=== PATIENT | male | born 2005 | race Caucasian/White ===

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

== ENCOUNTER 2024-12-22 15:08 | Emergency (ER) | payer MEDICAID, SELFPAY ==
--- NOTE | 2024-12-22 15:15 | ED.SKABFB ---
HPI - Skin/Abscess/Foreign Bdy General Chief complaint: Skin/Abscess/Foreign Body Stated complaint: Lower Back Cyst- Pain Related Data Previous Rx's ?Medication ?Instructions ?Recorded doxycycline monohydrate 100 mg 100 mg PO BID #20 caps 04/22/22 capsule Allergies Allergy/AdvReac Type Severity Reaction Status Date / Time ibuprofen [IBUPROFEN] Allergy Unknown facial Verified 12/22/24 15:18 swelling PMFSH Social History Social History Advance Directives: No Advance Directives Information Provided: No Physical Exam Vital Signs: Vital Signs: Last Vital Signs Temp 97.1 F 12/22/24 15:17 Pulse 77 12/22/24 15:17 Resp 16 12/22/24 15:17 BP 99/51 L 12/22/24 15:17 Pulse Ox 97 12/22/24 15:17 O2 Del Method Room Air 12/22/24 15:17 BMI result Body Mass Index 21.2 Course Course Course Narrative: This is a Rapid Medical Exam performed in triage by Mishel Ford PA-C. Full HPI, ROS and PE to be performed by primary ED provider. 19 yo M w/pmhx pilonidal cyst presenting to the ED c/o painful cyst to low back/buttock x1 mos. denies drainage from area. urinating & having BMs normally PE: area not examined in triage Plan: full eval by main ED provider Discharge Plan Discharge Clinical Impression: Pilonidal cyst Patient Disposition: Left W/O Completing Treatment Prescriptions: No Action doxycycline monohydrate 100 mg capsule 100 mg PO BID Qty: 20 0RF Discharge Date/Time: 12/22/24 19:42
[2024-12-22 15:17] VITALS: BP 99/51; PULSE 77; RESP 16; TEMP 36.2; O2SAT 97; BMI 21.2
--- OUTSIDE RECORDS SUMMARY | 2024-12-22 18:48 | XMS_ITS | Encounter Summary ---
Author Organization [employer] Address [address] [facility] [address] [place] [address] Care Team Providers Care Hogshead Head Matcher Name Role Phone Carlton Rondon MD Primary Care Provider [phone] Milagros Villagran Primary Care Provider [phone] Encounter Details Date Type Department Care Team ([facility] st Contact Info) Description 10/24/2022 Orders Only [facility] [address] [place] [id number] Carlton Rondon MD [address] [place] [phone] Seizure disorder (CMS/HCC) (Primary Dx) Social History Tobacco Use Types Packs/Day Years Used Date Smoking Tobacco: Never Assessed Sex and Gender Information Value Date Recorded Sex Assigned at Male 07/01/2022 10:18 AM EDT Legal Sex Male 10:18 AM EDT Gender Identity Male 07/01/2022 10:18 AM EDT Sexual Orientation Straight 07/01/2022 10 :18 AM EDT documented as of this encounter Plan of Treatment Not on file documented as of this encounter Visit Diagnoses Diagnosis Seizure disorder (CMS/HCC)- Primary Unspecified epilepsy without mention of intractable epilepsy documented in this encounter Care Teams Hogshead Head Matcher Relationship Specialty Start Date End Date Carlton Rondon MD [address] [place] [address] [phone] PCP - General Pediatrics 02/06/22 05/11/23 Milagros Villagran ANP [address] [place] [phone] PCP - General Family Medicine 05/12/23 documented as of this encounter
--- OUTSIDE RECORDS SUMMARY | 2024-12-22 18:48 | XMS_ITS | Clinical Summary ---
Author Organization [email or web address] Address [address] [facility] 7[address] [place] [address] Care Team Providers Care Communications Officer Name Role Phone Milagros Villagran MILTON Primary Care Provider [phone] Allergies Active Allergy Reactions Criticality Noted Date Comments Ibuprofen 10/24/2022 Medications * This document contains information received from the source organization and may not represent a complete record from that organization. Retin-A 0.05 % cream APPLY TO THE AFFECTED AREA(S) ON FACE AT BEDTIME 10/11/2022 Active OXcarbazepine (Trileptal) 300 MG tabletIndicatio ns:Seizure disorder (CMS/HCC) TAKE 2 TABLETS BY MOUTH EVERY TWELVE HOURS 120 tablet 1 05/07/2024 Active Active Problems Problem Noted Date Diagnosed Date Anxiety 06/15/2024 Assessment & Plan (06/16/2024 10:22 AM EDT): During [facility] Consult Dedrick presenting with excessive worry/anxiety, difficulty controlling worry, anxiety/worry associated to restlessness and/or feeling keyed-up/On edge , easily fatigued , difficulty concentrating and/or mind going blank , irritability, and sleep disturbance difficulty falling asleep, and sense of dread ; for a period of 18+ mo, for some symptoms in the context of family issues, financial concern, and illness or family illness. Dedrick carries a PTSD diagnosis per his medical chart. Pt reports having difficulties within the family dynamics. He gets triggered by external stimulus causing severe anger and irritability leading to a sense of isolation from others to avoid conflicts. His medical condition has also being identified as current stressor for sxs due to presentation of seizures. clinician engaged patient with active/reflective listening and provided an emphatic approach. Pt prefers to utilize [facility] programs and request same-day appointment in [place] due to lack of transportation. Reviewed and assessed for risk, current stressors and protective factors. clinician will provide additional support during next medical appointment. 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 Overview (10/02/2023): Oxcarmazepine 600mg BID (from PCP), [place] Diazepam 15mg PRN seizures >5min (from neuro), had been w/ [facility] pedi neuro & to f/u w/ adult neuro now Post-traumatic stress disorder, unspecified 09/2023 Assessment & Plan (05/13/2024 10:28 AM EDT): During [facility] Consult Dedrick presenting with Intrusive trauma memories and thoughts, Hypervigilance, Avoidance of trauma reminders/triggers, Increased startle response, Fear and distrust in relationships, Isolation from normal social supports, and Feelings of impending doom; for a period of 18+ mo, for most or all symptoms in the context of family issues, financial concern, illness or family illness, and housing. Dedrick report having difficulties with his family dynamics. He gets triggered by external stimulus causing severe anger and irritability. He prefers to isolate from others in order to avoid conflicts at home. Medical condition has also being identified as current stressor for sxs. clinician engaged patient with active/reflective listening and provided an emphatic approach. Pt prefers to utilize [facility] programs and request same-day appointment with [facility] in [place]. Pt would like to start medication to help him sleep better. Provided feedback to PCP who will look into it. Reviewed and assessed for risk, current stressors and protective factors. Information for [facility] provided. Assessment & Plan (10/02/2023 4:21 PM EST): PROGRESS NOTE: ID: Dedrick is a 18 y.o. Decline to answer straight-identified cis-male (pronouns ) with No previous hx of MH dx or sx No previous hx of MH services who presents for Anger. Pt has Hx of trauma in both childhood and adulthood, patient has comorbid illness that prevent him to find a job. During [facility] Consult Dedrick presenting with Intrusive trauma memories and thoughts, Hypervigilance, Avoidance of trauma reminders/triggers, Increased startle response, Fear and distrust in relationships, Isolation from normal social supports, and Feelings of impending doom; for a period of 18+ mo, for all symptoms in the context of stressed relationship with grandmother and biological father, lack of income, possibility of become homeless. PLAN: New/Additional Services needed Off-site services for Behavioral Health Integration Plan External OP therapy referral and OP psychiatry Referral Patient Self Plan Patient to [facility] as [facility], Patient to engage in OP therapy , and Patient to reach out to [facility] as needed Acne vulgaris 10/24/2022 Overweight 10/24/2022 Seizure disorder 10/24/2022 Seasonal allergies 12/16/2018 Encounters Date Type Department Care Team Description 11/12/2024 Population Health Risk Score [facility] () Department [address] [place] [address] [phone] Provider, Population Health Generic from Last 3 Months Immunizations Name Administration Dates Next Due DTaP 10/08/2007, 6,03/22/2004,01/26,2003 HPV 9-Valent 05/21/2016,11/02/2015,02/14/2015 Hep A, ped/adol, 2 dose 05/21/2016,11/02/2015 Hep B, Adolescent or Pediatric 03/22/2004,2003,2003 Hib (HbOC) 09/27/2005, 4,01/27/2004,11/20 IPV 10/08/2007, 5,01/27/2004,11/20 Influenza injectable quadriv alent IIV4 with preservative 11/02/2015 Influenza injectable quadriv alent preservative free 10/17/2020,08/20/2018,06/03/2014 Influenza, IIV3, injectable 07/22/2006, 6 MMR 03/01/2009,10/08/2007,09/07/2004 Meningococcal MCV4P [id number]-135 10/17/2020,02/15/20 15 Pfizer Covid-19 Vaccine 12+ Bivalent 08/21/2022 Pneumococcal Conjugate PCV 7 09/27/2005, 03/22/2004,01/27/2004,11/20 Tdap 02/14/2015 Varicella 03/01/2009,10/08/2007,09/07/2004 Social History Tobacco Use Types Packs/Day Years Used Date Smoking Tobacco: Never Smokeless Tobacco: Never Tobacco Cessation:Counseling Given: Not Answered Alcohol Use Standard Drinks/Week Comments Never 0 (1 standard drink = 0.6 oz pur e alcohol) Depression Answer Date Recorded Patient Health Questionnaire-9 Score 9 06/15/2024 Patient Health Questionnaire-9 Score 9 06/15/2024 Last PHQ-9: Questionnaire Data Not on file 1 Housing Stability Answer Date Recorded What is your housing situation today? I have rolanda huerta 05/07/[address] you li ve. Do you have problems with any of the following? None of the above 05/07/2024 Food Insecurity Answer Date Recorded Within the past 12 months, y ou worried that your food would run out before you got money to buy more: Never True 05/07/2024 Within the past 12 months,th e food you bought just didn't last and you didn't have enough money to get more: Never True 01/2024 Transportation Answer Date Recorded In the past 12 months, has l ack of transportation kept you from medical appts, meetings, work or from getting things needed for daily living? No 05/07/2024 Utilities Answer Date Recorded In the past 12 months, has t he electric, gas, oil or water company threatened to shut off services in your home? Already shut Off 05/07/2024 Depression Answer Date Recorded Patient Health Questionnaire-2 Score 2 06/15/2024 Internet Access Answer Date Recorded Internet Access Q1 Yes 05/07/2024 Internet Access Q2 Not on file 05/07/2024 Sex and Gender Information Value Date Recorded Sex Assigned at Male 07/01/2022 10:18 AM EDT Legal Sex Male 10:18 AM EDT Gender Identity Male 07/01/2022 10:18 AM EDT Sexual Orientation Straight 07/01/2022 10 :18 AM EDT Last Filed Vital Signs Vital Sign Reading Time Taken Comments Blood Pressure 114/60 05/07/2024 2:21 PM EDT Pulse 91 05/07/2024 2:21 PM EDT Temperature 36.6 ??C (97.8 ??F) 05/07/2024 2:21 PM ED T Respiratory Rate 20 05/07/2024 2:21 PM EDT Oxygen Saturation 97% 05/07/2024 2:21 PM EDT Inhaled Oxygen Concentration - - Weight 61 kg (134 lb 6.4 oz) 05/07/2024 2:21 PM EDT Height 168 cm (5' 6.14 ) 05/07/2024 2:21 PM EDT Body Mass Index 21.6 05/07/2024 2:21 PM EDT Plan of Treatment Health Maintenance Due Date Last Done Comments Chlamydia and Gonorrhea Screening 2003 HIV Screening 2003 Alcohol/Substance Use Screening 2015 Family Planning (PISQ) 2018 Hepatitis C Screening 2021 COVID-19 Vaccine ( season) 2024 08/21/2022, 05/30/2021, 04/25/2021 Influenza Vaccine (#1) 2024 , 08/20/2018, 11/02/2015, Additional history exists Depression Monitoring 12/14/2024 06/15/2024, 024 DTaP/Tdap/Td Vaccines (7 - Td or Tdap) 02/14/2025 02/14/2015, 10/08/2007, 09/27/2005, Additional history exists SDOH Screening 05/07/2025 05/07/2024 Tobacco Screening 05/07/2025 05/07/2024 Depression Screening 06/15/2025 06/15/2024, 06/15/20 24 Zoster Vaccines (1 of 2) 2053 RSV Patients and Patients Aged 60 years or older (1 - 1-dose 75+ series) 2078 Hepatitis B Vaccines Completed 03/22/2004, 2003, 2003 HIB Vaccines Completed 09/27/2005, 03/02, 01/27/2004, Additional history exists Pneumococcal Vaccine: Pediatrics (0 to 5 Years) and At-Risk Patients (6 to 49) Years) Aged Out 09/27/2005, 03/22/2004, 01/27/2004, Additional history exists No longer eligible based on patient's age to complete this topic IPV Vaccines Completed 10/08/2007, 03/2005, 01/27/2004, Additional history exists HPV Vaccines Completed 05/21/2016, 10/2015, 02/14/2015 Hepatitis A Vaccines Completed 05/21/2016, 11/02/19 16 Meningococcal Vaccine Completed 10/17/2020, 015 RSV under 20 months Aged Out No longe r eligible based on patient's age to complete this topic Rotavirus Vaccines Aged Out No longer eligible based on patient's age to complete this topic Insurance [employer] C3 Care Teams Communications Officer Relationship Specialty Start Date End Date Milagros Villagran ANP [address] [place] [phone] PCP - General Family Medicine 05/12/23
== END 2024-12-22 19:42 | disposition left against medical advice (07) ==
PROVIDERS: Emergency Provider Emergency Medicine
DX: L05.91 Pilonidal cyst without abscess (principal); Z53.21 Procedure and treatment not carried out due to patient leaving prior to being seen by health care provider
CPT/HCPCS: 99281

== ENCOUNTER 2025-01-14 17:30 | Emergency (ER) | payer MEDICAID, SELFPAY ==
[2025-01-14 18:11] VITALS: BP 92/43; PULSE 81; RESP 16; TEMP 37.1; O2SAT 98; BMI 19.6
[2025-01-14 22:00] VITALS: BP 100/56; PULSE 71; RESP 16; TEMP 36.7; O2SAT 98
--- NOTE | 2025-01-14 23:14 | ED.GENADULT ---
HPI - General Adult General Chief complaint: Skin/Abscess/Foreign Body Stated complaint: cyst removal Time Seen by Provider: 01/14/25 22:55 Source: patient, RN notes reviewed and old records reviewed Mode of arrival: ambulatory Limitations: no limitations History of Present Illness ED Provider: Jareth HPI narrative: 19-year-old male presents for evaluation of ?pilonidal abscess. 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 He is due to have surgery if the end of next month for definitive treatment. However over last 2 days he has had worsening pain, swelling and subjective fevers. He was here last month and had an incision and drainage He was not placed on antibiotics and reports his symptoms did improve but did not completely resolve before returning 2 days ago While in the ER, prior to my evaluation he reports that the area opened up and has been draining profusely. He reports it is primarily yellow green drainage but then became bloody Related Data Previous Rx's ?Medication ?Instructions ?Recorded doxycycline monohydrate 100 mg 100 mg PO BID #20 caps 04/22/22 capsule cephalexin 500 mg capsule 500 mg PO QID #40 caps 01/14/25 Allergies Allergy/AdvReac Type Severity Reaction Status Date / Time ibuprofen [IBUPROFEN] Allergy Unknown facial Verified 01/14/25 18:12 swelling Review of Systems Constitutional: Constitutional: Denies body ache(s), Denies chills, Reports fever(s) and Denies headache(s) ENT: Denies headache(s) Integumentary/Breasts: Skin/Breast: Reports erythema, Reports skin pain, Reports skin swelling and Reports sores Neurologic: Denies headache(s) PMF Social History Social History Advance Directives: No Advance Directives Information Provided: No Physical Exam ED Vital Signs: Vital Signs - 24 hr 01/14/25 18:11 01/14/25 22:00 01/14/25 23:26 Temperature 98.7 F 98.1 F 98.8 F Pulse Rate 81 71 94 Respiratory Rate 16 16 16 Blood Pressure 92/43 L 100/56 L 92/52 L Pulse Oximetry 98 98 96 Oxygen Delivery Method Room Air Room Air Room Air 01/14/25 23:36 Temperature 98.8 F Pulse Rate 94 Respiratory Rate 16 Blood Pressure 92/52 L Pulse Oximetry 96 Oxygen Delivery Method Room Air BMI result Body Mass Index 19.6 Const General: healthy appearing, comfortable, no acute distress, alert and awake Nutritional Appearance: well nourished Orientation/consciousness: patient oriented x3 HENMT Head: Yes normocephalic and Yes atraumatic Throat: Yes posterior oropharynx normal Eyes Eyelids: Yes eyelids normal Conjunctivae: conjunctivae normal Sclerae: sclerae normal Corneas: corneas normal Pupils: Equal, round and reactive pupils present EOM: EOMs intact bilaterally Neck Neck: Yes full ROM Skin Other: Patient has chronic skin changes with discoloration and induration in the gluteal cleft in superior to the gluteal cleft. There is some erythema. There was a central opening, about half a cm above the gluteal cleft draining mostly bloody material. No foul-smelling drainage. There was no induration, erythema extending down towards the rectum. Overall, the area of induration is about 6 cm in diameter General skin exam: elasticity normal Neuro General: patient oriented x3 Cranial nerves: Yes Equal, round and reactive pupils present and Yes Bilaterally intact EOM present Cognition (Neuro): normal cognition Extrem Other: Moving all extremities well without any obvious deformities Medications Administered Discontinued Medications Generic Name Dose Route Start Last Admin Trade Name Freq PRN Reason Stop Dose Admin Cephalexin HCl 500 mg 01/14/25 23:14 01/14/25 23:31 Cephalexin 500 Mg Capsule PO 01/14/25 23:15 500 mg ONCE ONE Administration Medical Decision Making Medical Decision Making [facility] Narrative: 19-year-old male presents for evaluation of a pilonidal abscess. He does appear to have an acute infection. The he is afebrile. The area open than an is draining on its own. He is not a diabetic. I recommended attempting incision and drainage to further open the area and remove any possible loculations. The patient apparently had a bad experience to the last time he required an an incision and drainage as he had did not feel he was properly anesthetized and declines incision and drainage as the area is currently draining. We will discharge the patient with cephalexin, warm compresses and he will be given return precautions Differential Diagnosis Differential Diagnoses: The differential diagnosis associated with the presentation includes Cellulitis Pilonidal abscess Sebaceous cyst Hidradenitis Discharge Plan Discharge Clinical Impression: Pilonidal abscess Patient Disposition: Home, Self-Care Instructions: Abscess (ED) Additional Instructions: Take the cephalexin every 6 hours for 10 days. Apply warm compresses every 4 hours for 10-15 minutes. Follow-up with your general surgeon as planned. Return for new or worsening symptoms, especially worsening pain or swelling, fevers Prescriptions: New cephalexin 500 mg capsule 500 mg PO QID Qty: 40 0RF No Action doxycycline monohydrate 100 mg capsule 100 mg PO BID Qty: 20 0RF Interventions: ED Discharge Assessment Last Done: 01/14/25 23:36 Discharge Date/Time: 01/14/25 23:37 Print Language: Uzbek
[2025-01-14 23:26] VITALS: BP 92/52; PULSE 94; RESP 16; TEMP 37.1; O2SAT 96
[2025-01-14] MEDS: cephALEXin 500 MG CAPSULE PO (23:31)
[2025-01-14 23:36] VITALS: BP 92/52; PULSE 94; RESP 16; TEMP 37.1; O2SAT 96
== END 2025-01-14 23:37 | disposition home or self-care (01) ==
PROVIDERS: Emergency Provider Internal Medicine
DX: L05.91 Pilonidal cyst without abscess (principal)
CPT/HCPCS: 99283

== ENCOUNTER 2025-02-01 09:54 | Outpatient (AMB) | payer MEDICAID, SELFPAY ==
--- NOTE | 2025-02-01 09:55 | A.OFFVIS_ITS ---
Vital Signs 3 02/01/25 10:02 Height 5 ft 8 in Weight 129 lb 10.109 oz BMI 19.7 Respiration 16 Intake Visit Reasons: pilonidal cyst Intake Note: Patient is seen in office for evaluation of a pilonidal cyst. Pt c/o: onset 2 months, went to ED due to open and draining, currently is close up sometimes it fills up, worse with sitting, denies redness, warm to touch, no pain, on antibiotics ED:01/14/25 Studio Assistant Required: No Accompanied by: Self / Same As Patient Allergies Seasonal Allergies Allergy (Mild, Verified 02/01/25 10:00) Unknown ibuprofen [IBUPROFEN] Allergy (Unknown, Verified 02/01/25 10:00) facial swelling Medication List - Last Reconciled 02/01/25 by Adam Gan MD cephalexin 500 mg PO QID oxcarbazepine 150 mg PO BID tretinoin 0.05% 1 appl topical BEDTIME HPI Comments Details: 19-year-old male patient presenting with a several year history of pilonidal cyst infections requiring least 3 incision and drainage procedures performed in the emergency department. His most recent episode occurred approximately 1 month ago and was his most severe episode. While waiting in the emergency department the cyst broke open spontaneously. He reports a large amount of discharge from the pilonidal cyst. He was subsequently placed on antibiotics and subsequently had improvement in his symptoms. He continues to feel some swelling in the intergluteal cleft and has a history of fever and chills during the most recent infection. He denies any current discharge. He is currently on cephalexin 500 mg p.o. q.i.d.. [facility] Medical History (Updated 02/01/25 @ 10:13 by Adam Gan MD) Pilonidal cyst Surgical History (Updated 02/01/25 @ 10:02 by FILIBERTO Azul) History of incision and drainage Review of Systems Const All systems reviewed & are unremarkable except as noted in HPI and below Physical Exam Const General: cooperative and no acute distress Nutritional Appearance: well nourished Orientation/consciousness: patient oriented x3 Limitations: no limitations HEENT Head: Yes normocephalic and Yes atraumatic Ears: hearing grossly normal bilaterally Resp Effort & Inspection: normal respiratory effort, no audible wheezes, no cough and no respiratory distress Cardio Jugular venous distension: no JVD GI Inspection: Yes normal to inspection Back/Spine/Pelvis Back/spine/pelvis image: 2 1. Large residual area of inflammation involving the left intergluteal cleft wall measuring approximately 3 cm in diameter, most consistent with a pilonidal cyst. There is no tenderness to palpation. Small amount of fluid is palpable below the skin. Skin Other: Warm, dry, no rash Neuro General: patient oriented x3 Extrem General: Yes no clubbing, cyanosis or edema Assessment & Plan Assessment & Plan (1) Pilonidal cyst: Code(s): L05.91 - Pilonidal cyst without abscess Category: Medical Plan 19-year-old male patient presenting with a recurrent history of pilonidal cyst infections requiring incision and drainage found to have a large area of inflammation most consistent with a pilonidal cyst. Because of the recurrent nature of his disease, I recommended a pilonidal cystectomy. I reviewed the procedure, risks, and alternatives and he consents to the pilonidal cystectomy which will be scheduled as a short-stay surgery at his earliest convenience. Coding Level of Care Code New Pt Level 4 (81565) Diagnoses Pilonidal cyst L05.91
[2025-02-01 10:02] VITALS: RESP 16; BMI 19.7
== END 2025-02-01 10:08 | disposition home or self-care (01) ==
LOC: HO.HGS 09:55
PROVIDERS: PCP Nurse Practitioner Primary Care; Visit Provider Surgery
DX: L05.91 Pilonidal cyst without abscess (principal)
CPT/HCPCS: 99204

== ENCOUNTER → 2025-02-01 09:54 | Outpatient (BNVA) | payer MEDICAID, SELFPAY | PROVIDERS: PCP Nurse Practitioner Primary Care; Visit Provider Surgery | DX: L05.91 Pilonidal cyst without abscess (principal) | CPT/HCPCS: 99202 ==

== ENCOUNTER 2025-05-10 16:33 | Outpatient (REF) | payer MEDICAID, SELFPAY ==
--- OUTSIDE RECORDS SUMMARY | 2025-05-10 13:30 | XMS_ITS | Encounter Summary ---
Author Organization [employer] Address [address] [facility] [address] [place] [address] Care Team Providers Care Engraving Operator Name Role Phone Milagros Villagran Primary Care Provider [phone] Reason for Visit * Reason Comments Annual Exam Encounter Details Date Type Department Care Team ([facility] st Contact Info) Description 05/10/2025 1:30 PM EDT Office Visit [facility] MEDICINE [address] [place], [place] [phone] Milagros Villagran ANP [address] [place], [place] [phone] Difficulty maintaining weight (Primary Dx); Difficulty sleeping; Focal epilepsy (CMS/HCC); Post-traumatic stress disorder, unspecified; Routine screening for STI (sexually transmitted infection); Pilonidal cyst; Healthcare maintenance Social History Tobacco Use Types Packs/Day Years Used Date Smoking Tobacco: Never Smokeless Tobacco: Never Alcohol Use Standard Drinks/Week Comments Never 0 (1 standard drink = 0.6 oz pur e alcohol) Depression Answer Date Recorded Patient Health Questionnaire-9 Score 6 05/10/2025 Patient Health Questionnaire-9 Score 6 05/10/2025 Last PHQ-9: Questionnaire Data Not on file 0 05/10/2025 Housing Stability Answer Date Recorded What is your housing situation today? I have rolanda huerta 05/10/[address] you li ve. Do you have problems with any of the following? None of the above 05/10/2025 Food Insecurity Answer Date Recorded Within the past 12 months, y ou worried that your food would run out before you got money to buy more: Never True 05/10/2025 Within the past 12 months,th e food you bought just didn't last and you didn't have enough money to get more: Never True 05/2025 Transportation Answer Date Recorded In the past 12 months, has l ack of transportation kept you from medical appts, meetings, work or from getting things needed for daily living? Yes, it has kept me from medical appointments or getting medications. 05/10/2025 Utilities Answer Date Recorded In the past 12 months, has t he electric, gas, oil or water company threatened to shut off services in your home? No 05/10/2025 Depression Answer Date Recorded Patient Health Questionnaire-2 Score 1 05/10/2025 Internet Access Answer Date Recorded Internet Access Q1 Yes 05/10/2025 Internet Access Q2 Not on file 05/10/2025 Sex and Gender Information Value Date Recorded Sex Assigned at Male 07/01/2022 10:18 AM EDT Legal Sex Male 10:18 AM EDT Gender Identity Male 07/01/2022 10:18 AM EDT Sexual Orientation Straight 07/01/2022 10 :18 AM EDT documented as of this encounter Last Filed Vital Signs Vital Sign Reading Time Taken Comments Blood Pressure 88/64 05/10/2025 1:45 PM EDT Pulse 102 05/10/2025 1:45 PM EDT Temperature 36.2 C (97.2 F) 05/10/2025 1:45 PM EDT Respiratory Rate 20 05/10/2025 1:45 PM EDT Oxygen Saturation 98% 05/10/2025 1:45 PM EDT Inhaled Oxygen Concentration - - Weight 59.9 kg (132 lb) 05/10/2025 1:45 PM EDT Height 167.6 cm (5' 6 ) 05/10/2025 1:45 PM EDT Body Mass Index 21.31 05/10/2025 1:45 PM EDT documented in this encounter Functional Status * Over the past 2 weeks, how often have you been bothered by any of the following problems? Question Answer Date of Assessment Author Patient Health Questionnaire -2 Score 1 05/10/2025 2:44 PM EDT Florinda Su MA * Little interest or pleasure in doing things Answer Date of Assessment Author Several days 05/10/2025 2:44 PM EDT Kaylynn Su MA * Feeling down, depressed, or hopeless Answer Date of Assessment Author Not at all 05/10/2025 2:44 PM EDT Kaylynn Su MA * Trouble falling or staying asleep, or sleeping too much Answer Date of Assessment Author More than half the days 05/10/2025 2:44 PM EDT Florinda Nieto MA * Feeling tired or having little energy Answer Date of Assessment Author Several days 05/10/2025 2:44 PM EDT Kaylynn Su MA * Poor appetite or overeating Answer Date of Assessment Author Several days 05/10/2025 2:44 PM EDT Kaylynn Su MA * Feeling bad about yourself - or that you are a failure or have let yourself or your family down Answer Date of Assessment Author Not at all 05/10/2025 2:44 PM EDT Kaylynn Su MA * Trouble concentrating on things, such as reading the newspaper or watching television Answer Date of Assessment Author Not at all 05/10/2025 2:44 PM EDT Kaylynn Su MA * Moving or speaking so slowly that other people could have noticed? Or the opposite - being so fidgety or restless that you have been moving around a lot more than usual. Answer Date of Assessment Author Several days 05/10/2025 2:44 PM EDT Kaylynn Su MA * Thoughts that you would be better off or hurting yourself in some way Answer Date of Assessment Author Not at all 05/10/2025 2:44 PM EDT Kaylynn Su MA * Patient Health Questionnaire-9 Score Answer Date of Assessment Author 6 05/10/2025 2:44 PM EDT Kaylynn Su MA * Over the last 2 weeks, how often have you been bothered by any of the following problems? Question Answer Date of Assessment Author Feeling nervous, anxious, or on edge 1 05/10/2025 2:45 PM RAYNAT Florinda Su MA Not being able to stop or co ntrol worrying 0 05/10/2025 2:45 PM RAYNAT Florinda Su MA Worrying too much about diff erent things 0 05/10/2025 2:45 PM EDT Florinda Su MA Trouble relaxing 0 05/10/2025 2:45 PM EDT R Florinda fraga MA Being so restless that it is hard to sit still 0 05/10/2025 2:45 PM EDT Florinda Su MA Becoming easily annoyed or irritable 0 05/10/2025 2:45 PM EDT Florinda Su MA Feeling afraid as if somethi ng awful might happen 0 05/10/2025 2:45 PM EDT Florinda Su MA KARLY-7 Total Score 1 05/10/2025 2:45 PM EDT Florinda Su MA documented as of this encounter Patient Instructions * Patient Instructions* MILTON Noguera - 05/10/2025 1:30 PM EDT Please call Dr. Gan's office to schedule removal for your pilonidal cyst: [phone] Please call your [facility] neurology office (Dr. Lang and WARREN Ag): [phone] For sleep: try the medication from your psychiatrist - Trazodone, or melatonin gummies you can purchase. I would also recommend chamomile tea which you can find at [employer] or any grocery store in the tea section. Look into Insight Timer or Calm lalita - both are apps that have sleep meditations available. documented in this encounter Plan of Treatment Scheduled Orders Name Type Priority Associated Diagnoses Orde r Schedule Chlamydia/N. Gonorrhoeae, PCR, Urine Lab Routine Routine screening for STI (sexually transmitted infection) Ordered: 05/10/2025 Hepatitis C Antibody with Reflex to HCV, RNA, Quantitative, Real-Time PCR Lab Routine Routine screening for STI (sexually transmitted infection) Expected: 05/10/2025 (Approximate), Expires: 05/10/2026 HIV-1/2 Antigen and Antibodies, Fourth Generation, with Reflexes Lab Routine Routine screening for STI (sexually transmitted infection) Expected: 05/10/2025 (Approximate), Expires: 05/10/2026 Syphilis Screen Lab Routine Routine screening for STI (sexually transmitted infection) Expected: 05/10/2025 (Approximate), Expires: 05/10/2026 Lipid Panel, Standard Lab Routine Healthcare maintenance Expected: 05/10/2025 (Approximate), Expires: 05/10/2026 TSH W/Reflex to FT4 Lab Routine Difficulty maintaining weight Expected: 05/10/2025 (Approximate), Expires: 05/10/2026 CBC auto differential Lab Routine Difficulty maintaining weight Expected: 05/10/2025 (Approximate), Expires: 05/10/2026 Oxcarbazepine Metabolite Lab Routine Focal epilepsy (CMS/HCC) Expected: 05/10/2025 (Approximate), Expires: 05/10/2026 documented as of this encounter Visit Diagnoses Diagnosis Difficulty maintaining weight- Primary Difficulty sleeping Unspecified sleep disturbance Focal epilepsy (CMS/HCC) Post-traumatic stress disorder, unspecified Routine screening for STI (sexually transmitted infection) Screening examination for venereal disease Pilonidal cyst Healthcare maintenance documented in this encounter Additional Health Concerns Assessment Noted Time PHQ-9 Depression Total Score: 6 05/10/20 25 2:44 PM EDT documented as of this encounter Care Teams Engraving Operator Relationship Specialty Start Date End Date Milagros Villagran ANP [address] [place] [id number] PCP - General Family Medicine 05/12/23 documented as of this encounter
--- OUTSIDE RECORDS SUMMARY | 2025-05-10 18:15 | XMS_ITS | Clinical Summary ---
Author Organization [employer] Address [address] [facility] [address] [place] [address] Care Team Providers Care Collar Closer Lockstitch Name Role Phone Milagros Villagran MILTON Primary Care Provider [phone] Allergies Active Allergy Reactions Criticality Noted Date Comments Ibuprofen 10/24/2022 Medications * This document contains information received from the source organization and may not represent a complete record from that organization. Retin-A 0.05 % cream APPLY TO THE AFFECTED AREA(S) ON FACE AT BEDTIME 10/11/19 23 Active busPIRone (Buspar) 5 MG tablet Take 5 mg by mouth 2 times daily. 02/23/20 25 Active escitalopram (Lexapro) 5 MG tablet Take 1 tablet by mouth Once per day. 02/23/20 25 Active traZODone (Desyrel) 50 MG tablet Take 50 mg by mouth at bedtime. 02/23/20 25 Active OXcarbazepine (Trileptal) 300 MG tablet Take 600 mg by mouth 2 times daily. 12/11/19 22 Active OXcarbazepine (Trileptal) 300 MG tabletIndicati ons:Seizure disorder (CMS/HCC) TAKE 2 TABLETS BY MOUTH EVERY TWELVE HOURS 120 tablet 1 05/07/20 24 025 Discontinued(Du plicate order (will not trigger notification to Pharmacy)) Active Problems Problem Noted Date Diagnosed Date Difficulty maintaining weight 05/10/2025 Pilonidal cyst 12/24/2024 Assessment & Plan (12/24/2024 4:33 PM EDT): I will refer patient to surgery Anxiety 06/15/2024 Assessment & Plan (06/16/2024 10:22 [...] an emphatic approach. Pt prefers to utilize [facility] programs and request same-day appointment in [place] due to lack of transportation. Reviewed and [...] and request same-day appointment with [facility] in [place]. Pt would like to start medication to [...] Self Plan Patient to reach out to [facility] team as needed, Patient to engage in OP therapy , and Patient to reach out to [facility] as needed Acne vulgaris 10/24/2022 Overweight 10/24/2022 Seizure disorder 10/24/2022 Seasonal allergies 12/16/2018 Encounters Date Type Department Care Team Description 05/10/2025 1:30 PM EDT Office Visit [facility] MEDICINE [address] [place] [id number] Milagros Villagran ANP Difficulty maintaining weight (Primary Dx); Difficulty sleeping; Focal epilepsy (CMS/HCC); Post-traumatic stress disorder, unspecified; Routine screening for STI (sexually transmitted infection); Pilonidal cyst; Healthcare maintenance 05/10/2025 Travel 05/09/[address] [phone] Milagros Villagran ANP chart prep 05/03/2025 Patient Outreach [address] [phone] Milagros Villagran ANP Pre-visit Planning (Pre-visit planning - LVM ) 02/09/2025 Telephone [facility] MEDICINE [address] [place] [address] Milagros Villagran ANP May recall from Last 3 Months Immunizations Immunization Administration Dates Next Due DTaP 10/08/2007, 6,03/22/2004,01/26,2003 HPV 9-Valent 05/21/2016,11/02/2015,02/14/2015 Hep A, ped/adol, 2 dose 05/21/2016,11/02/2015 Hep B, Adolescent or Pediatric 03/22/2004,2003,2003 Hib ([facility]) 09/27/2005, 4,01/27/2004,11/20 IPV 10/08/2007, 5,01/27/2004,11/20 Influenza injectable [...] Mass Index 21.31 05/10/2025 1:45 PM EDT Plan of Treatment Health Maintenance Due Date Last Done Comments Chlamydia and Gonorrhea Screening 2003 HIV Screening 2003 Family Planning (PISQ) 2018 Meningococcal B Vaccine (1 of 2 - Standard) 2019 Hepatitis C Screening 2021 COVID-19 Vaccine (4 - 2024- season) 2025 08/21/2022, 05/30/2021, 04/25/2021 Influenza Vaccine (#1) 2025 , 08/20/2018, 11/02/2015, Additional history exists Alcohol/Substance Use Screening 05/10/2026 05/10/2025 DTaP/Tdap/Td Vaccines (7 - Td or Tdap) 05/10/2026 02/14/2015, 10/08/2007, 09/27/2005, Additional history exists Postponed from 02/14/2025 (Patient Refused) Depression Screening 05/10/2026 05/10/2025, 05/10/20 25 Disability Screening 05/10/2026 05/10/2025 SDOH Screening 05/10/2026 05/10/2025 Tobacco Screening 05/10/2026 05/10/2025 Zoster Vaccines (1 of 2) 2053 RSV Patients and Patients Aged 60 years or older (1 - 1-dose 75+ series) 2078 Hepatitis B Vaccines Completed 03/22/2004, 2003, 2003 HIB Vaccines Completed 09/27/2005, 03/02, 01/27/2004, Additional history exists Pneumococcal Vaccine: Pediatrics (0 to 5 Years) and At-Risk Patients (6 to 49) Years Aged Out 09/27/2005, 03/22/2004, 01/27/2004, Additional history [...] patient's age to complete this topic Insurance [facility] C3 Care Teams Collar Closer Lockstitch Relationship Specialty Start Date End Date Milagros Villagran ANP [address] [place] [id number] PCP - General Family Medicine 05/12/23
--- OUTSIDE RECORDS SUMMARY | 2025-05-10 18:15 | XMS_ITS | Encounter Summary ---
Author Organization [employer] Address [address] [facility] [address] [place] [address] Care Team Providers Care Mud Analysis Well Logging Captain Name Role Phone Milagros Villagran Primary Care Provider [phone] Reason for Visit * Reason Onset Date Comments chart prep 05/09/2025 Encounter Details Date Type Department Care Team ([facility] st Contact Info) Description 05/09/2025 Telephone [facility] MEDICINE [address] [place], [place] [phone] Milagros Villagran ANP [address] [place], [place] [phone] chart prep Social History Tobacco Use Types Packs/Day Years [...] AM EDT documented as of this encounter Miscellaneous Notes * Telephone Encounter - Nadege Davalos MA - 05/09/2025 2:11 PM EDT Chart Prep Labs: not applicable Images: done Screenings: HIV screening Vaccines due: Covid Due, Tdap Due, Flu Due, and MCV4 Due Referrals: Completed Overdue care gaps: Sbirt, SDOH, PHQ9, GAD7, Disability , and Oral Health documented in this encounter Plan of Treatment Not on file documented as of this encounter Visit Diagnoses Not on filedocumented in this encounter Additional Health Concerns Assessment Noted Time PHQ-9 Depression Total Score: 9 06/15/20 24 2:09 PM EDT documented as of this encounter Care Teams Mud Analysis Well Logging Captain Relationship Specialty Start Date End Date Milagros Villagran ANP [address] [place] [id number] PCP - General Family Medicine 05/12/23 documented as of this encounter
--- OUTSIDE RECORDS SUMMARY | 2025-05-10 18:15 | XMS_ITS | Encounter Summary ---
Author Organization [employer] Address [address] [facility] [address] [place] [address] Care Team Providers Care Blood Bank Assistant Name Role Phone Milagros Villagran MILTON Primary Care Provider [phone] Encounter Details Date Type Department Care Team (Latest Contact Info) Description 05/10/2025 Travel Social History Tobacco Use Types Packs/Day Years [...] AM EDT documented as of this encounter Functional Status * Over the [...] or on edge 1 05/10/2025 2:45 PM EDT Florinda Su MA Not being able to stop or co ntrol worrying 0 05/10/2025 2:45 PM EDT Florinda Su MA Worrying too much about diff erent things 0 05/10/2025 2:45 PM EDT Florinda Su MA Trouble relaxing 0 05/10/2025 2:45 PM EDT Florinda Nieto MA Being so restless that it is [...] Su MA documented as of this encounter Plan of Treatment Not on file documented as of this encounter Visit Diagnoses Not on filedocumented in this encounter Additional Health Concerns Assessment Noted Time PHQ-9 Depression Total Score: 6 05/10/20 25 2:44 PM EDT documented as of this encounter Care Teams Blood Bank Assistant Relationship Specialty Start Date End Date Milagros Villagran ANP [address] [place] [address] PCP - General Family Medicine 05/12/23 documented as of this encounter
--- OUTSIDE RECORDS SUMMARY | 2025-05-10 18:15 | XMS_ITS | Encounter Summary ---
Author Organization [email or web address] Address [address] [facility] [address] [place] [address] Care Team Providers Care Liquor Gallery Operator Name Role Phone Carlton Rondon MD Primary Care Provider [phone] Milagros Villagran Primary Care Provider [phone] Encounter Details Date Type Department Care Team ([facility] st Contact Info) Description 10/24/2022 Orders Only [facility] [address] [place] [address] Carlton Rondon MD [address] [place] [address] Seizure disorder (CMS/HCC) (Primary Dx) Social History [...] epilepsy documented in this encounter Care Teams Liquor Gallery Operator Relationship Specialty Start Date End Date Carlton Rondon MD [address] [place] [id number] PCP - General Pediatrics 02/06/22 05/11/23 Milagros Villagran ANP [address] [place] [address] [id number] PCP - General Family Medicine 05/12/23 documented as of this encounter
[2025-05-10 18:20] LABS: CT PCR Urine NOT DETECTED (Not Detect.); NG PCR Urine NOT DETECTED (Not Detect.)
== END 2025-05-10 16:34 | disposition home or self-care (01) ==
LOC: HO.LNP 16:33
PROVIDERS: Visit Provider Nurse Practitioner Primary Care
DX: Z11.3 Encounter for screening for infections with a predominantly sexual mode of transmission (principal); Z11.8 Encounter for screening for other infectious and parasitic diseases
CPT/HCPCS: 87491; 87591